=== PATIENT | female | born 1990 ===

== ENCOUNTER 2023-02-26 04:23 | Inpatient (IN) | payer BC ==
[2023-02-26] MEDS ORDERED: Sodium Chloride 0.9% 10 ML Syringe FLUSH PRN (05:25)
[2023-02-26] MEDS ORDERED: Lidocaine 1% 50 ML MDV INJECT ONE (05:25)
[2023-02-26] MEDS ORDERED: Ondansetron 4 MG/2 ML SDV IVPUSH PRN (05:25)
[2023-02-26] MEDS ORDERED: Nalbuphine 10 MG/0.5 ML Syringe IVPUSH PRN (05:25)
[2023-02-26] MEDS ORDERED: Lactated Ringers 1,000 ML IV SCH (05:30)
[2023-02-26] MEDS ORDERED: Oxytocin/Lactated Ringers 10 UNIT/1,000 ML BAG IV SCH (05:30)
[2023-02-26 05:47] LABS: BASOPHILS PERCENT AUTO 0.3 % (0.0-1.0); EOSINOPHILS ABSOLUTE AUTO 0.1 K/mm3 (0.0-0.4); EOSINOPHILS PERCENT AUTO 0.7 % (0.0-6.0); HEMATOCRIT 37.7 % (37.0-47.0); HEMOGLOBIN 12.9 gm/dl (12.0-16.0); IMMATURE GRAN PERCENT AUTO 0.8 % (0.0-0.4); LYMPHOCYTES ABSOLUTE AUTO 1.2 K/mm3 (1.0-4.8); LYMPHOCYTES PERCENT AUTO 8.9 % (24.0-44.0); MEAN CORPUSCULAR HGB CONC 34.2 g/dl (32.0-36.0); MEAN CORPUSCULAR VOLUME 84.7 fl (83.0-99.0); MONOCYTES ABSOLUTE AUTO 0.6 K/mm3 (0.0-0.8); NEUTROPHILS ABSOLUTE AUTO 10.9 K/mm3 (1.8-7.7); NEUTROPHILS PERCENT AUTO 84.3 % (41.0-71.0); PLATELET COUNT,PLT 225 K/mm3 (150-400); RED BLOOD CELL COUNT 4.45 M/mm3 (4.10-5.30); WHITE BLOOD CELL COUNT,WBC 12.91 K/mm3 (3.9-11.3)
[2023-02-26] MEDS ORDERED: Sodium Chloride 0.9% 10 ML Syringe FLUSH SCH (09:00)
[2023-02-26] MEDS ORDERED: Benzocaine/Menthol 20%-0.5% Spray 78 GM Cannister TOP PRN (11:43)
[2023-02-26] MEDS ORDERED: Ibuprofen 600 MG Tab PO PRN (11:43)
[2023-02-26] MEDS ORDERED: Acetaminophen 325 MG Tab PO PRN (11:43)
[2023-02-26] MEDS ORDERED: Witch Hazel Medicated Pads 40/Jar TOP PRN (11:43)
[2023-02-26] MEDS ORDERED: Docusate Sodium 100 MG Cap PO PRN (11:43)
== END 2023-02-27 12:54 | disposition home or self-care (01) | DRG 560 ==
LOC: JD.OBCHECK 04:23 → JD.OB 04:26 → JD.OBCHECK 04:29 → OBSVTOIN 10:50 → JD.OB 11:00
PROVIDERS: ADMIT Obstetrics & Gynecology; ATTEND Obstetrics & Gynecology
PROC: 10E0XZZ Delivery of Products of Conception, External Approach (ICD-10-PCS; principal; 2023-02-26)
PROC: 3E033VJ Introduction of Other Hormone into Peripheral Vein, Percutaneous Approach (ICD-10-PCS; 2023-02-26)
DX: O48.0 Post-term pregnancy (principal); Z37.0 Single live birth; O70.0 First degree perineal laceration during delivery; Z3A.40 40 weeks gestation of pregnancy; Z88.2 Allergy status to sulfonamides
CPT/HCPCS: 36415; 59025; 59409; 84112; 85025; 86592; A9270-GY